=== PATIENT | female | born 1955 | race Caucasian/White ===

== ENCOUNTER 2021-04-02 22:44 | Emergency (ER) | payer SELFPAY ==
[2021-04-03] MEDS ORDERED: AUGMENTIN 500-1 EACH PO (00:06)
== END 2021-04-03 00:22 | disposition home or self-care (01) ==
LOC: FER 22:44
DX: S61.552A Open bite of left wrist, initial encounter (principal); Z23 Encounter for immunization; Z88.5 Allergy status to narcotic agent; W54.0XXA Bitten by dog, initial encounter
CPT/HCPCS: 90471; 90714